=== PATIENT | male | born 1965 | race Caucasian/White ===

== ENCOUNTER 2017-07-10 15:56 | Emergency (ER) | payer OTHER ==
--- NOTE | 2017-07-10 16:01 | PDOC ---
Rapid Medical Evaluation Medical Evaluation: 07/10/17 15:58 I have performed a brief in-person evaluation of this patient. The patient presents with a chief complaint of: subjective fever x 4 days + sweating, headache since last night, denies n/v/d, took Tylenol at 6 am for headache Pertinent physical exam findings: lungs clear, VSS, afebrile I have ordered the following: nothing The patient will proceed to the ED for further evaluation. Discharge Disposition - Diagnosis Fever - Referrals - Patient Instructions - Post Discharge Activity
[2017-07-10 16:02] VITALS: BP 143/93; PULSE 103; TEMP 99.8; BMI 27.3
[2017-07-10] MEDS ORDERED: IBUPROFEN 600 MG TABLET (FP) PO ONE ×2 (16:51)
--- NOTE | 2017-07-10 16:57 | PDOC ---
History of Present Illness - General Chief Complaint: Cold Symptoms Stated Complaint: FEVER Time Seen by Provider: 07/10/17 15:58 History Source: Patient Exam Limitations: No Limitations - History of Present Illness Initial Comments: 07/10/17 16:53 This is a 51-year-old male without significant past medical history who presents emergency Department with 5 days of body aches, chills, fevers, moist cough, frontal headache. Patient states his headache started this morning for which he took a gram of Tylenol which resolved his headache completely. He denies any shortness of breath, chest pain, blurry vision, dizziness, abdominal pain, nausea, vomiting, diarrhea. Patient states he tried to schedule an appointment with his primary doctor today but was unable. Past History - Past Medical History Allergies/Adverse Reactions: Allergies Allergy/AdvReac Type Severity Reaction Status Date / Time No Known Allergies Allergy Verified 07/10/17 15:58 Home Medications: Ambulatory Orders NK [No Known Home Medication] 07/10/17 COPD: No DVT: No - Immunization History Immunization Up to Date: Yes - Suicide/Smoking/Psychosocial Hx Smoking History: Never smoked Have you smoked in the past 12 months: No Information on smoking cessation initiated: No Hx Alcohol Use: No Drug/Substance Use Hx: No Substance Use Type: None Review of Systems - Review of Systems Able to Perform ROS?: Yes Is the patient limited Macedonian proficient: No Constitutional: Yes: See HPI HEENTM: Yes: See HPI Respiratory: Yes: See HPI Cardiac (ROS): No: Symptoms Reported ABD/GI: No: Symptoms Reported : No: Symptoms Reported Musculoskeletal: Yes: See HPI Integumentary: No: Symptoms Reported Neurological: No: Symptoms reported Endocrine: No: Symptoms Reported Hematologic/Lymphatic: No: Symptoms Reported *Physical Exam - Vital Signs Last Vital Signs Temp Pulse Resp BP Pulse Ox 99.8 F H 103 H 17 143/93 98 07/10/17 15:59 07/10/17 15:59 07/10/17 15:59 07/10/17 15:59 07/10/17 15:59 - Physical Exam General Appearance: Yes: Appropriately Dressed. No: Apparent Distress HEENT: positive: TMs Normal, Pharyngeal Erythema. negative: Tonsillar Exudate, Tonsillar Erythema Neck: positive: Trachea midline, Supple Respiratory/Chest: positive: Lungs Clear, Normal Breath Sounds. negative: Respiratory Distress, Accessory Muscle Use Cardiovascular: positive: Regular Rhythm, Regular Rate. negative: Murmur Gastrointestinal/Abdominal: positive: Normal Bowel Sounds, Soft. negative: Tender Musculoskeletal: positive: Normal Inspection. negative: CVA Tenderness Extremity: positive: Normal Inspection, Normal Range of Motion Integumentary: positive: Normal Color, Dry, Warm Neurologic: positive: ledger poster II-XII NML intact, Fully Oriented, Alert, Normal Response, Motor Strength 5/5, Other (Negative Kernig's. Negative Brudzinski) Medical Decision Making - Medical Decision Making 07/10/17 16:55 A/P: 51-year-old male without significant past medical history with 5 days of viral symptoms Pharyngeal erythema present. No tonsillar exudate present +2 tonsils noted No cervical lymphadenopathy present Respirations even and unlabored Lungs clear to auscultation bilaterally Cranial nerves II through XII grossly intact Negative Brudzinski Negative Kernig's Symptoms and exam are consistent with viral infection. I will defer testing for influenza given onset of symptoms greater than 72 hours. Patient was instructed on symptomatically treatment of verbalized understanding. *DC/Admit/Observation/Transfer Diagnosis at time of Disposition: Upper respiratory infection, viral Fever Qualifiers: Fever type: unspecified Qualified Code(s): R50.9 - Fever, unspecified - Discharge Dispostion Disposition: HOME Condition at time of disposition: Stable Admit: No - Referrals - Patient Instructions Printed Discharge Instructions: DI for Viral Upper Respiratory Infection -- Adult Additional Instructions: Rest, drink lots of fluids: Teas, water, soups, Pedialyte Saltwater gargles Steamy showers/seem to face break up mucus Avoid contact with others until fevers and cough resolved Lots of handwashing and good hygiene Continue [id number] medications for symptomatic relief Tylenol or Motrin for fever and pain Followup with private physician in one to 2 days as needed Return to emergency department for worsened symptoms, fevers, dehydration - Post Discharge Activity Forms/Work/School Notes: Back to Work
== END 2017-07-10 16:54 | disposition home or self-care (01) ==
LOC: JERFT 15:56
DX: J06.9 Acute upper respiratory infection, unspecified (principal); B97.89 Other viral agents as the cause of diseases classified elsewhere
CPT/HCPCS: 99281-25